=== PATIENT | female | born 1930 | race Caucasian/White ===

== ENCOUNTER 2016-08-07 17:06 | Emergency (ER) | payer OTHER ==
[~2016-08-07] VITALS: Ht 165.1 cm; Wt 62.6 kg
--- NOTE | ~2016-08-07 | EKG ---
[place] [address] [facility] [email or web address] [address] ELECTROCARDIOGRAM REPORT Name: ELMA ROSADO Room #: DEP [facility]#: [id number] Admission: 08/07/16 Attend Phys: Discharge: 08/07/16 Date of : 32 Report #: [id number] THIS REPORT FOR: //name// [facility] ED Test Date: 2016-08-07 Test Time: 17:22:03 Pat Name: ELMA ROSADO Department: Room: Gender: F President Celebrity Acquistion: warner : 1930 Requested By: Mariela Jones Order Number: [id number] MD: Alf Ellison Measurements Intervals [place] Rate: 71 P: 75 NE: 183 QRS: -22 QRSD: 100 T: 72 QT: 460 QTc: 500 Interpretive Statements Sinus rhythm Borderline left axis deviation Probable anteroseptal infarct, old Compared to ECG 10/27/2013 15:02:11 Premature ventricular complexes no longer present Electronically Signed On 08-08-2016 15:08:32 CDT by Alf Ellison [email or web address] <ELECTRONICALLY SIGNED> By: Alf Ellison MD, [facility] 08/08/16 1508 172 21 Alf Ellison MD, [facility] /EPI
[~2016-08-07 17:06] MED LIST: ACETAMINOPHEN325 M1 PO; ACID CONTROL20 MG PO; ACIDOPHILUS1 EAC3 PO; ADULT LOW DOSE81 MG PO; ASPIRIN EC81 M1 PO; ATIVAN0.5 MG PO; BAYER CHEWABLE81 MG PO; BISACODYL SUPP10 MG RE; CEFUROXIME500 MG PO; CELLCEPT500 MG PO; CEPACOL SORE T1 EAC7 PO; CHLORTHALIDONE25 MG PO; CLEOCIN HCL150 MG PO; CLEOCIN HCL300 MG PO; CLOPIDOGREL PO; CLOTRIMAZOLE10 MG PO; COLACE100 MG PO; COUMADIN 5 MG TA5 M1 PO; COZAAR 50 MG TA50 M1 PO; DESYREL100 MG PO; DIAZEPAM 5 MG5 M1 PO; ENOXAPARIN80 MG/0.1 SUBQ; HYDROCODON-ACE1 EAC7 PO; HYDROCODON-ACE1 EAC8 PO; HYDROCODON-ACE1 EACH PO; HYDROCODONE-APA1 TA1 PO; IMDUR 30 MG TAB30 M1 PO; IMDUR 60 MG TAB60 M1 PO; ISOSORBIDE DINI30 MG PO; LEVOTHROID25 MCG PO; LEVOTHYROXINE25 MCG PO; LEVOXYL PO; LEVOXYL25 MCG PO; LISINOPRIL20 MG PO; LOPERAMIDE 2 MG2 M1 PO; LOPRESSOR25 PO; MECLIZINE 25 MG25 M1 PO; MECLIZINE HCL12.5 MG PO; MILLIPRED DP5 M1 PO; MOM PO; MUCINEX TA600 MG/TA2 PO; NITROSTAT0.4 MG SL; NITROSTAT0.4 MG SUBLING; NORVASC5 MG PO; OCEAN45 ML NASAL; OPTIVE EYE DROP30 ML OPHTHALMIC; PERIDEX15 ML SWISH&SPIT; PLAVIX 75 MG TA75 MG PO; PREDNISONE 5 MG5 M1 PO; PREMARIN VAG; PROGRAF 1 MG1 MG PO; RANEXA 500 MG500 M1 PO; RANEXA1000 MG PO; RANEXA500 MG PO; REFRESH CELLUVI1 APP OPHTHALMIC; REFRESH CELLUVISC OPHTHALMIC; REMERON15 MG PO; REQUIP 0.25 M0.25 M1 PO; RESTASIS1 EACH OPHTHALMIC; SENNA LAXATIVE8.6 MG PO; SEROQUEL 50 MG50 MG PO; SERTRALINE HCL100 MG PO; STERAPRED5 MG PO; TACROLIMUS1 MG PO; TEARS NATURALE-15 ML OPHTHALMIC; TESSALON PERLE100 M1 PO; TOPROL XL25 MG PO; TUMS CHEWA500 MG/11 PO; ZANTAC 150MG T150 M1 PO; ZOCOR 20 MG TAB20 M1 PO; ZOLOFT 50 MG TA50 M1 PO; ZOLOFT100 MG PO
[2016-08-07 18:08] LABS: ABSOLUTE NEUTROPHILS 9.7 thou/uL (1.4-8.2); BASOPHILS 0.4 % (0.0-2.0); EOSINOPHILS 0.6 % (0.0-3.0); HEMATOCRIT 41.6 % (37.0-47.0); HEMOGLOBIN 14.1 gm/dL (12.0-15.0); LYMPHOCYTES 12.3 % (24.0-44.0); MCH 32.7 pg (26.0-34.0); MCHC 33.8 g/dL (28.0-37.0); MCV 96.8 fL (80.0-100.0); MONOCYTES 6.7 % (1.0-8.0); PLATELET COUNT 226 thou/uL (150-400); WBC 12.1 thou/uL (4.0-11.0)
[2016-08-07 18:10] LABS: MANUAL DIFF NO
[2016-08-07 18:22] LABS: ANION GAP 11 mmol/L (7-16); BUN 10 mg/dL (7-18); CALCIUM 8.4 mg/dL (8.5-10.1); CHLORIDE 108 mmol/L (98-107); CO2 24 mmol/L (21-32); CREATININE 0.8 mg/dL (0.6-1.0); GLUCOSE 114 mg/dL (74-106); POTASSIUM 3.5 mmol/L (3.5-5.1); SODIUM 143 mmol/L (136-145)
[2016-08-07 18:24] LABS: PROTIME 10.7 Seconds (9.3-11.4)
[2016-08-07 18:32] LABS: ALBUMIN 3.1 g/dL (3.4-5.0); ALKALINE PHOSPHATASE 124 U/L (46-116); SGOT 19 U/L (15-37); SGPT 18 U/L (30-65); TOTAL BILIRUBIN 0.5 mg/dL (<0.1-1.0); TOTAL PROTEIN 6.3 g/dL (6.4-8.2); TROPONIN-I < 0.04 ng/mL (<0.04-0.07)
[2016-08-07] MEDS ORDERED: PHENERGAN 25 MG25 M1 PO (21:18)
[2016-08-07] MEDS ORDERED: NORCO 5-325 TA1 EACH PO (21:32)
[2016-08-08] MEDS ORDERED: TACROLIMUS1 MG PO (14:33)
[2016-08-08] MEDS ORDERED: LISINOPRIL20 MG PO (14:36)
[2016-08-08] MEDS ORDERED: CLOPIDOGREL75 MG PO (14:37)
[2016-08-08] MEDS ORDERED: MECLIZINE HCL12.5 MG PO (14:40)
[2016-08-08] MEDS ORDERED: EYE DROPS15 M1 OPHTHALMIC (14:42)
== END 2016-08-07 21:50 | disposition home or self-care (01) ==
LOC: ER 17:06
PROVIDERS: Physician Assistant
DX: S16.1XXA Strain of muscle, fascia and tendon at neck level, initial encounter (principal); S20.211A Contusion of right front wall of thorax, initial encounter; S70.01XA Contusion of right hip, initial encounter; M25.461 Effusion, right knee; I10 Essential (primary) hypertension; E78.5 Hyperlipidemia, unspecified; I25.10 Atherosclerotic heart disease of native coronary artery without angina pectoris; Z86.73 Personal history of transient ischemic attack (TIA), and cerebral infarction without residual deficits; E03.9 Hypothyroidism, unspecified; Z85.828 Personal history of other malignant neoplasm of skin; G47.30 Sleep apnea, unspecified; H04.129 Dry eye syndrome of unspecified lacrimal gland; F32.9 Major depressive disorder, single episode, unspecified; Z90.710 Acquired absence of both cervix and uterus; Z91.041 Radiographic dye allergy status; Z91.013 Allergy to seafood; Z88.0 Allergy status to penicillin; Z88.1 Allergy status to other antibiotic agents; Z88.8 Allergy status to other drugs, medicaments and biological substances; W18.30XA Fall on same level, unspecified, initial encounter; Y93.89 Activity, other specified; Y92.89 Other specified places as the place of occurrence of the external cause; Y99.9 Unspecified external cause status

== ENCOUNTER 2016-08-08 11:18 | Inpatient (IN) | payer OTHER ==
[~2016-08-08] VITALS: Ht 165.1 cm; Wt 62.6 kg
--- NOTE | ~2016-08-08 | D ---
[facility] [place] [address] DISCHARGE SUMMARY Name: ELMA ROSADO Room #: 546-P [facility] IN M.R.#: [id number] Admission: 08/08/16 Attend Phys: Nnamdi Valentine MD Discharge: 08/11/16 Date of : 32 Report #: [id number] THIS REPORT FOR: //name// CC: Jose Enrique Valentine FINAL DIAGNOSES: 1. Right knee sprain. 2. Right knee osteoarthritis. 3. Left wrist fracture. 4. Personal history of kidney transplant. 5. Gait disturbance. HOSPITAL COURSE: The patient was admitted from home after a fall. She suffered a right knee strain. X-rays were negative. CT was negative. consultation and performed a steroid injection. Voltaren gel was added and this seemed to help her pain. Other home medications were continued. She was still basically nonweightbearing due to her previous left wrist fracture about 2 weeks ago. She could not function at home nor her family could care for her, so [place] [facility]. PHYSICAL EXAMINATION: GENERAL: On the day of discharge, she was awake and alert. VITAL SIGNS: Stable. LUNGS: Clear. HEART: Regular. ABDOMEN: Soft. EXTREMITIES: Showed no edema. DISPOSITION: She will to [place] [facility] [place] [facility] [place], I will follow her stay there. DIET: She will have a regular diet. ACTIVITY: As tolerated. PT and OT, nonweightbearing on the left wrist. MEDICATIONS: I have signed her medication list. <ELECTRONICALLY SIGNED> By: Nnamdi Valentine MD 08/12/16 1108 1350 1937 Nnamdi Valentine MD /nt
--- NOTE | ~2016-08-08 | H ---
[facility] [place] [address] HISTORY AND PHYSICAL Name: ELMA ROSADO Room #: 546-P ADM IN M.R.#: [id number] Admission: 08/08/16 Attend Phys: Nnamdi Valentine MD Discharge: Date of : 32 Report #: [id number] THIS REPORT FOR: //name// CC: Jose Enrique Valentine DATE OF SERVICE: 08/08/2016 CHIEF COMPLAINT: Weakness and falls. HISTORY OF PRESENT ILLNESS: The patient is an 85-year-old female who had 2 recent falls and ER admissions with injury. She fell a couple of weeks ago and suffered a left wrist fracture, for which she has a splint. She then had another fall a few days ago and went to the emergency room with right knee pain. There is no fracture identified on x-ray; however. Her daughter called me yesterday and the patient is unable to stand or walk due to pain and weakness. Her daughter is unable to care for her and she was admitted from the hospital. PAST MEDICAL HISTORY: Chronic kidney disease, she has had a kidney transplant; hypertension. She had coronary artery disease. PAST SURGICAL HISTORY: As above. FAMILY HISTORY: Noncontributory. SOCIAL HISTORY: No chronic alcohol or tobacco use. ALLERGIES: CODEINE, PENICILLIN, TRIMETHOPRIM, SULFA AND FOOD INTOLERANCE. MEDICATIONS: Meclizine, aspirin, Ativan, Lipitor, Plavix, Pepcid, hydrocodone, isosorbide, Synthroid, Prinivil, metoprolol, mirtazapine, mycophenolate, prednisone, Seroquel, Ranexa, Sertraline, tacrolimus. REVIEW OF SYSTEMS: She complains of right knee pain and weakness. She is unable to walk or stand, otherwise no headache, chest pain, shortness of breath, abdominal pain, nausea, vomiting, diarrhea, constipation, dysuria or syncope. OBJECTIVE: VITAL SIGNS: Temperature 37.1, pulse ____, respirations 16, blood pressure 140/62, O2 sat 95% on room air. GENERAL: She is awake and alert, in no distress. HEAD AND NECK: Unremarkable. LUNGS: Clear. HEART: Regular. ABDOMEN: Soft, normoactive bowel sounds. EXTREMITIES: There is no edema. She has a splint on the left forearm and [address] [address] HISTORY AND PHYSICAL Name: ELMA ROSADO Room #: [address] [place] [address] [place] [facility].#: [id number] Admission: 08/08/16 Attend Phys: Nnamdi Valentine MD Discharge: Date of : 32 Report #: [id number] wrist. There is some swelling of the left knee, there is no bruising. It is tender to range of motion. NEUROLOGIC: Global strength 3/5 throughout. Basic lab data is unremarkable. ASSESSMENT: 1. Right knee strain. 2. Left wrist fracture. 3. Falls. 4. Gait disturbance. 5. Senile debility. 6. Personal history of kidney transplant. 7. Hypertension. 8. Coronary artery disease. 9. Chronic kidney disease. PLAN: She is admitted for medical evaluation of her knee and therapies. She will need some level of rehabilitation once her knee has been investigated. Other home medications to continue. SCDs. <ELECTRONICALLY SIGNED> By: Nnamdi Valentine MD 08/10/16 0900 0751 0814 Nnamdi Valentine MD /nt
--- NOTE | ~2016-08-08 | HC ---
[facility] [place] [address] CONSULTATION Name: ELMA ROSADO Room #: 546-P ADM IN M.R.#: [id number] Admission: 08/08/16 Attend Phys: Nnamdi Valentine MD Discharge: Date of : 32 Report #: [id number] THIS REPORT FOR: //name// CC: Jose Enrique Valentine CHIEF COMPLAINT: Right knee pain. HISTORY OF PRESENT ILLNESS: This is an 85-year-old patient who came to the emergency room on the after falling, it was noted at that point to have significant right hip, knee and lower extremity pain. She was unable to ambulate without significant increased pain afterwards. Presently, she complains of right knee pain more than any of the other symptoms. She has a history of Meniere's disease with a history of a prior right hip hemiarthroplasty. PAST MEDICAL HISTORY: Significant for a renal transplant in 1999, hypertension, hyperlipidemia, cardiomegaly, coronary artery disease, CVA times 3, appendectomy, cholecystectomy, meningitis, depression, delusions, hypothyroidism, frequent headaches, right hip fracture in February of 2008, basal cell carcinoma removed from the nose, history of pneumonia, sleep apnea, hysterectomy in , dry eye syndrome, bilateral cataract surgery, surgery, irrigation and debridement of right neck abscess in 2013, dysphagia and a history of a prior DVT in the right upper extremity. MEDICATIONS: Noted on MR. ALLERGIES: To include CONTRAST MEDIA, SHELLFISH, CODEINE, PENICILLIN, TRIMETHOPRIM, and SULFA. SOCIAL HISTORY: Negative for tobacco or alcohol use. REVIEW OF SYSTEMS: As above. PHYSICAL EXAMINATION: VITAL SIGNS: Blood pressure of 136/63, temperature is 98.4, pulse is 69, respiratory rate is 16. EXTREMITIES: Examination of the patient's right lower extremity notes she is nontender over her ankle at this point, she has no effusion over her knee joint, tender to palpation along the proximal tibia as well as anteriorly. She has limited motion due to pain. She otherwise is neurovascularly intact distally. X-rays of the hip notes a intact hemiarthroplasty. X-rays of the knee notes some arthritic changes, question of a nondisplaced proximal tibia fracture. X-rays of the tib-fib are negative. IMPRESSION: Right knee pain with effusion, possible occult fracture. [address] [address] CONSULTATION Name: ELMA ROSADO Room #: 546-P [facility] IN M.R.#: [id number] Admission: 08/08/16 Attend Phys: Nnamdi Valentine MD Discharge: Date of : 32 Report #: [id number] PLAN: At this point, we proceed with a CT scan to evaluate the right knee. Once cleared, if it is negative, we will proceed with therapy and perhaps a steroid injection. We will manage accordingly if there is an occult fracture. Thank you for allowing me to participate in the care of this pleasant patient. <ELECTRONICALLY SIGNED> By: Elpidio Hubbard MD 08/10/16 1154 0914 1051 Elpidio Hubbard MD /nt
[~2016-08-08 11:18] MED LIST changes: +NORCO 5-325 TA1 EACH PO; +PHENERGAN 25 MG25 M1 PO
[2016-08-08 12:15] VITALS: BP 163/71
[2016-08-08] MEDS ORDERED: TACROLIMUS1 MG PO (14:33)
[2016-08-08] MEDS ORDERED: LISINOPRIL20 MG PO (14:36)
[2016-08-08] MEDS ORDERED: CLOPIDOGREL75 MG PO (14:37)
[2016-08-08] MEDS ORDERED: MECLIZINE HCL12.5 MG PO (14:40)
[2016-08-08] MEDS ORDERED: EYE DROPS15 M1 OPHTHALMIC (14:42)
[2016-08-08 15:41] VITALS: BP 176/78
[2016-08-08 16:08] LABS: HEMATOCRIT 42.9 % (37.0-47.0); HEMOGLOBIN 14.4 gm/dL (12.0-15.0); MCH 32.5 pg (26.0-34.0); MCHC 33.6 g/dL (28.0-37.0); MCV 96.5 fL (80.0-100.0); RBC 4.44 mil/uL (4.20-5.00); RDW 12.9 % (10.5-14.5); WBC 11.6 thou/uL (4.0-11.0)
[2016-08-08 16:21] LABS: CALCIUM 8.3 mg/dL (8.5-10.1); CREATININE 0.8 mg/dL (0.6-1.0); POTASSIUM 3.5 mmol/L (3.5-5.1)
[2016-08-08 20:00] VITALS: BP 125/54
[2016-08-09 04:00] VITALS: BP 140/62
[2016-08-09 08:10] VITALS: BP 136/63
[2016-08-09 18:00] VITALS: BP 124/75
[2016-08-09 21:25] VITALS: BP 139/60
[2016-08-10 04:10] VITALS: BP 149/63
[2016-08-10 08:00] VITALS: BP 133/60
[2016-08-10 11:20] VITALS: BP 111/59
[2016-08-10 15:35] VITALS: BP 111/47
[2016-08-10 20:00] VITALS: BP 155/83
[2016-08-11 04:30] VITALS: BP 188/104
[2016-08-11 07:13] VITALS: BP 177/88
[2016-08-11] MEDS ORDERED: VOLTAREN GEL 1100 G1 TOP (12:52)
[2016-08-11] MEDS ORDERED: HYDROCODONE-APA1 TA1 PO (12:52)
== END 2016-08-11 14:13 | DRG 554 ==
LOC: PRE 11:18 → 5S 12:12
PROVIDERS: Internal Medicine Geriatric Medicine
DX: M17.11 Unilateral primary osteoarthritis, right knee (principal); Z94.0 Kidney transplant status; S62.102A Fracture of unspecified carpal bone, left wrist, initial encounter for closed fracture; M25.561 Pain in right knee; E78.5 Hyperlipidemia, unspecified; I25.10 Atherosclerotic heart disease of native coronary artery without angina pectoris; F32.9 Major depressive disorder, single episode, unspecified; E03.9 Hypothyroidism, unspecified; I12.9 Hypertensive chronic kidney disease with stage 1 through stage 4 chronic kidney disease, or unspecified chronic kidney disease; N18.9 Chronic kidney disease, unspecified; R26.9 Unspecified abnormalities of gait and mobility; S80.01XA Contusion of right knee, initial encounter; Z88.0 Allergy status to penicillin; Z88.2 Allergy status to sulfonamides; Z91.041 Radiographic dye allergy status; Z86.718 Personal history of other venous thrombosis and embolism; Z86.73 Personal history of transient ischemic attack (TIA), and cerebral infarction without residual deficits; Z90.49 Acquired absence of other specified parts of digestive tract; Z91.013 Allergy to seafood; Z88.6 Allergy status to analgesic agent; Z79.82 Long term (current) use of aspirin; Z79.899 Other long term (current) drug therapy; W18.39XA Other fall on same level, initial encounter; Y93.89 Activity, other specified; Y92.89 Other specified places as the place of occurrence of the external cause; Y99.8 Other external cause status
CPT/HCPCS: 10785

== ENCOUNTER 2016-12-30 18:35 | Inpatient (IN) | payer OTHER ==
[~2016-12-30] VITALS: Ht 165.1 cm; Wt 68.0 kg
--- NOTE | ~2016-12-30 | H ---
[facility] [place] [address] HISTORY AND PHYSICAL Name: ELMA ROSADO Room #: 420-P [facility] IN M.R.#: [id number] Admission: 12/31/16 Attend Phys: Winston Arriola MD Discharge: Date of : 32 Report #: [id number] THIS REPORT FOR: //name// CC: Jose Enrique Arriola DATE OF SERVICE: 12/31/2016 CHIEF COMPLAINT: Dizziness, nausea and vomiting. HISTORY OF PRESENT ILLNESS: The patient is an 86-year-old female with multiple medical problems, who came to the Emergency Room with a 1- to 2-day history of dizziness with nausea and vomiting. She does have a history of Meniere's disease and says in the past she has had symptoms that seemed limited to just 24 hours. Mainly, she notices a sense of dizziness whenever she opened her eyes or turned her head from side to side or sitting up from a lying position in bed. This was accompanied by nausea and vomiting. She also experienced symptoms of a headache and she complained of a stiff neck. As her symptoms persisted more than a day, she presented to the Emergency Room last night. Overnight, she continues to have symptoms when moving around, but says she feels a little better this morning after receiving some Zofran. She has had a CT and MRI of the brain that are negative for acute stroke or bleed. Carotid Dopplers and echocardiogram are unremarkable as well. PAST MEDICAL HISTORY: Chronic kidney disease, she had a kidney transplant about 10 years ago; hypertension; coronary artery disease and Meniere's disease. She reports a history of meningitis about 8 years ago which occurred after her transplant. PAST SURGICAL HISTORY: As above. FAMILY HISTORY: Noncontributory. SOCIAL HISTORY: No chronic alcohol or tobacco use. ALLERGIES: CODEINE, PENICILLIN, SULFA AND SOME FOOD INTOLERANCES. MEDICATIONS: Plavix, Ranexa, Zocor, isosorbide, metoprolol, lisinopril, aspirin, hydrocodone, Remeron, Zoloft, Seroquel, Ativan, eyedrops, meclizine, prednisone, Levoxyl, mycophenolate, tacrolimus and Pepcid. REVIEW OF SYSTEMS: She complains of dizziness. Otherwise, no night sweats, chest pain, fever, chills, shortness of breath, abdominal pain, diarrhea, constipation, syncope or fall. [address] [address] HISTORY AND PHYSICAL Name: ELMA ROSADO Room #: 420-P [facility] IN ..#: [id number] Admission: 12/31/16 Attend Phys: Winston Arriola MD Discharge: Date of : 32 Report #: [id number] PHYSICAL EXAMINATION: VITAL SIGNS: Temperature 36.7, pulse 72, respirations 16 and blood pressure 183/70. GENERAL: She was awake and alert, lying in bed, in no distress. HEAD AND NECK: Unremarkable. She had no real neck rigidity. LUNGS: Clear. HEART: Regular. ABDOMEN: Soft. Normoactive bowel sounds. EXTREMITIES: No edema. NEUROLOGIC: She moves all extremities. She is alert and oriented, recognizes me and knows her surroundings. LABORATORY DATA: Lab and radiology data reviewed. ASSESSMENT: 1. Vertigo with nausea and vomiting. 2. Hypertension. 3. Coronary artery disease. 4. Personal history of renal transplant. 5. Meniere's disease by history. 6. History of meningitis. PLAN: She has had most of her radiology studies unremarkable for acute vascular event. Neurology has been consulted. Given her immunosuppression and remote history, we should rule out recurrent meningitis, although without significant headache, this seems perhaps less likely. This may all just be related to her underlying Meniere's disease. <ELECTRONICALLY SIGNED> By: Nnamdi Valentine MD 01/01/17 0804 1201 1232 Nnamdi Valentine MD /nt
--- NOTE | ~2016-12-30 | HC ---
[facility] [address] CONSULTATION Name: ELMA ROSADO Room #: 418-P ADM IN M.R.#: [id number] Admission: 12/31/16 Attend Phys: Winston Arriola MD Discharge: Date of : 32 Report #: [id number] THIS REPORT FOR: //name// CC: Jose Enrique Arriola DATE OF SERVICE: 01/04/2017 HISTORY OF PRESENT ILLNESS: The patient is an 86-year-old white female with a 1-2 day history of dizziness, nausea and vomiting. She has a prior history of Meniere's disease and also has had prior CVAs. She was seen by Neurology. MRI showed old right cerebellar and left occipital CVAs with nothing acute. This was noted to be her most severe episode and it was thought to be due to her Meniere's disease. She is overall doing better with improved nausea, but still has significant balance issues. We are seeing her in rehabilitation medicine consultation. PAST MEDICAL HISTORY: Includes chronic kidney disease with the kidney transplant about 10 years ago; hypertension; coronary artery disease; Meniere's disease; history of meningitis about 4 years ago; she has had strokes, the last one 4 years ago and has had a right homonymous hemianopsia from this. MEDICATIONS: Please see the full medication listing. ALLERGIES: CODEINE, PENICILLIN, SULFA, AND SOME FOOD INTOLERANCES. FAMILY HISTORY: Noncontributory. SOCIAL HISTORY: She lives with her daughter, split-level house, 4 steps in, 8 inside. Premorbidly walked with a walker. Daughter is recently retired and the daughter herself has leukemia. REVIEW OF SYSTEMS: The patient notes a prior history of right knee degenerative arthritis. Apparently was recommended for a total knee replacement at one point, but now she has indicated that she is too old to be a surgical candidate. Denies any chest pain, shortness of breath or abdominal discomfort. Did not offer any complaints of nausea. She has concerned regarding her dizziness and balance when attempting to get up. PHYSICAL EXAMINATION: GENERAL: She is a pleasant 86-year-old white female in no obvious distress. VITAL SIGNS: Last recorded temperature is 98.1, pulse 82, respirations 18, blood pressure 152/85. NEUROLOGIC: The patient is alert. She is pleasant. She follows basic [address] [address] CONSULTATION Name: ELMA ROSADO Room #: 418-P [facility] IN .R.#: [id number] Admission: 12/31/16 Attend Phys: Winston Arriola MD Discharge: Date of : 32 Report #: [id number] commands. There is some latency to her responses. Cranial nerves reveal a right homonymous hemianopsia. HEENT: Facies otherwise appeared symmetric. EXTREMITIES: She has functional range of motion of both upper extremities. Strength appears to be at 4+/5. DTRs are trace to 1. In her lower extremities, she has functional range of motion with strength grade 4+/5. DTRs are trace to 1. Functionally, she has sat approximately 5 minutes, standby assistance with some mild trunk instability and was unable to ambulate. ASSESSMENT: An 86-year-old white female with the following problem list: 1. Meniere's disease. 2. Gait instability with recent falls. 3. 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 4. 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 5. Hypertension. 6. History of renal transplant. PLAN: Therapies are working with her regarding her functional mobility and ADLs. Insurance will need to be checked regarding rehab options. The patient is clearly unable to return home at this time and will need further therapy to improve her functional mobility and ADL independence. We will be glad to follow along with you regarding rehab therapy issues. <ELECTRONICALLY SIGNED> By: Nnamdi Coleman MD 01/05/17 1232 0935 0136 Nnamdi Coleman MD /[facility]
--- NOTE | ~2016-12-30 | EKG ---
[address] [place] [address] ELECTROCARDIOGRAM REPORT Name: ELMA ROSADO Room #: 420-P ADM IN M.R.#: [id number] Admission: 12/31/16 Attend Phys: Winston Arriola MD Discharge: Date of : 32 Report #: [id number] THIS REPORT FOR: //name// [facility] ED Test Date: 2016-12-30 Test Time: 19:19:34 Pat Name: ELMA ROSADO Department: Room: [facility] Gender: F Javascript Engineer: [id number] : 1930 Requested By: Lance Potter Order Number: [id number] MD: Alf Ellison Measurements Intervals [place] Rate: 59 P: 79 [place]: 181 QRS: -16 QRSD: 92 T: 64 QT: 501 QTc: 497 Interpretive Statements Sinus rhythm Borderline left axis deviation Probable anteroseptal infarct, old Baseline wander in lead(s) II,III,aVF Compared to ECG 08/07/2016 17:22:03 No significant change was found Electronically Signed On 12-31-2016 8:18:07 CDT by Alf Ellison [email or web address] <ELECTRONICALLY SIGNED> By: Alf Ellison MD, [facility] 12/31/16 0818 18 18 Alf Ellison MD, [facility] /EPI
--- NOTE | ~2016-12-30 | D ---
[facility] [place] [address] DISCHARGE SUMMARY Name: ELMA ROSADO Room #: 418-P [facility] IN M.R.#: [id number] Admission: 12/31/16 Attend Phys: Winston Arriola MD Discharge: 01/05/17 Date of : 32 Report #: [id number] THIS REPORT FOR: //name// CC: Jose Enrique Arriola FINAL DIAGNOSES: 1. Meniere's disease. 2. Hypertension. 3. History of kidney transplant. HOSPITAL COURSE: The patient was admitted with dizziness, intractable nausea and vomiting. Initial workup was to exclude acute vascular event and MRI studies were unremarkable. Neurology service followed her. Also with consideration of meningitis, which she suffered previously and this was ruled out after tap, ID service followed her. Essentially diagnosis was exacerbation of her underlying Meniere's disease. She was treated symptomatically with increased doses of meclizine and her home medications. Physical therapy was added as well. She was still imbalanced when walking. Recommended inpatient rehabilitation, but her insurance company would not cover this, therefore she will transfer to a skilled facility. PHYSICAL EXAMINATION: GENERAL: On the day of discharge, she was up in the chair, in no distress. VITAL SIGNS: Stable vital signs. LUNGS: Clear. HEART: Regular. ABDOMEN: Soft. Normoactive bowel sounds. EXTREMITIES: No edema. DISPOSITION: She is being transferred to [facility], I follow her stay there, physical and occupational, I signed her transfer medication orders. <ELECTRONICALLY SIGNED> By: Nnamdi Valentine MD 01/07/17 1018 1233 1500 Nnamdi Valentine MD /nt
--- NOTE | ~2016-12-30 | HC ---
[facility] [address] CONSULTATION Name: ELMA ROSADO Room #: 420-P ADM IN M.R.#: [id number] Admission: 12/31/16 Attend Phys: Winston Arriola MD Discharge: Date of : 32 Report #: [id number] THIS REPORT FOR: //name// CC: Jose Enrique Arriola REASON FOR CONSULTATION: I was asked to evaluate the patient concerning headache and possible meningitis. HISTORY OF PRESENT ILLNESS: The patient is an 86-year-old, immunosuppressed on 3-drug program for renal transplant. She has had no recent rejection episodes. She is on tacrolimus, CellCept and prednisone. In the past 3 days, she has had headache, dizziness, nausea, vomiting, sore throat. No definite fever or chills. She has been unsteady on her gait. Intermittent nonproductive cough. She has had no travel. She has been around no other ill persons. She does have some stiff neck associated with her headache. PAST MEDICAL HISTORY: Significant for end-stage renal disease status post renal transplant approximately 10 years ago, hypertension, Meniere disease. She has had a case of meningitis in the remote past. Coronary artery disease, stents, previous stroke, appendectomy, cholecystectomy, depression, hypothyroidism, right hip fracture with hemiarthroplasty, right knee surgery, basal cell carcinoma of the face, pneumonia, obstructive sleep apnea, partial hysterectomy, bilateral cataracts, sialadenitis and stone with abscess, DVT, left arm fracture. ALLERGIES: IODINE, CODEINE, PENICILLIN, BACTRIM. MEDICATIONS: As noted on her MAR, having completed ciprofloxacin about a week ago for documented urinary tract infection. FAMILY HISTORY: Noncontributory. SOCIAL HISTORY: Nonsmoker, no significant alcohol intake, no HIV risk factors. REVIEW OF SYSTEMS: In addition to the above, she has had no rash. No abdominal pain. Has had nausea. She does have loose stools, which is chronic for her. No dysuria or frequency. PHYSICAL EXAMINATION: VITAL SIGNS: Afebrile, hemodynamically stable. GENERAL: She was alert and cooperative. She was thin. HEENT: Remarkable for decreased hearing on the right. She did report vertigo to the right when she sat up in bed. Decreased hearing on the right. Mouth unremarkable. Extraocular movements intact. Strength in her face was normal. [address] [address] CONSULTATION Name: ELMA ROSADO Room #: 420-P [facility] IN M.R.#: [id number] Admission: 12/31/16 Attend Phys: Winston Arriola MD Discharge: Date of : 32 Report #: [id number] NECK: 1+ stiff. LUNGS: Few crackles in the bases bilaterally. HEART: Regular without murmur. ABDOMEN: Soft, nontender, no hepatosplenomegaly or mass. EXTREMITIES: Unremarkable. NEUROLOGIC: Otherwise normal. LABORATORY STUDIES: MRI scan of the brain showed old infarct, right cerebellum and left occipital region. Chest x-ray: Clear. UA: Unremarkable. CRP 16. Hemoglobin 16, WBC 9.4, normal diff, platelet count 186,000. Sodium 141, potassium 3.6, bicarbonate 21, creatinine 0.7, alkaline phosphatase 143, ALT 19. IMPRESSION: An 86-year-old with persisting headache with decreased hearing on the right and vomiting. Although she does not look toxic, I am concerned about inflammatory process in the central nervous system considering no evidence of new stroke. She is immunosuppressed on 3 drugs. She does have a history of Meniere's, but this seems out of proportion to her previous episodes. The patient is on anticoagulation, noting aspirin and clopidogrel. I would recommend a lumbar puncture when Radiology feels it is safe to perform. We will evaluate for viral, bacterial, fungal disease. Continue current support. I would like to lower her immunosuppression if there is evidence of inflammation in the cerebrospinal fluid examination. We will need to see how she does after this tap. Will empirically place on antibiotic therapy following cerebrospinal fluid examination. By: 1327 1647 Mike Quigley MD /nt
--- NOTE | ~2016-12-30 | 2DMMODE ---
[facility] [place] [address] 2 D/M-MODE ECHOCARDIOGRAM Name: ELMA ROSADO Room #: 420-P ADM IN M.R.#: [id number] Admission: 12/31/16 Attend Phys: Mai Suresh Discharge: Date of : 34 Date of Service: 12/31/16 1123 Report #: [id number] THIS REPORT FOR: //name// APPROVED REPORT Study performed: 12/31/2016 10:30:18 EXAM: Comprehensive 2D, Doppler, and color-flow Echocardiogram Patient Location: Bedside Room #: 420 Status: routine BSA: 1.75 HR: 80 bpm BP: 183/70 mmHg Rhythm: NSR Other Information Study Quality: Adequate Indications CVA/TIA Hx: CAD, stent, CVA's Echo Enhancing Agent Indication: Rule out Shunt Agent(s) / Amount(s) Used: Agitated Saline 6 cc 2D Dimensions RVDd: 30.21 mm LVEF(%): 55.38 (>50%) IVSd: 13.20 (7-11mm) LVOT Diam: 20.61 (18-24mm) LVDd: 34.60 mm PWd: 10.12 (7-11mm) Ascending Ao: 38.55 (22-36mm) LVDs: 24.89 (25-40mm) Aortic Root: 36.54 mm Rodas's LVEF: 55.38 % Volumes Left Atrial Volume (Systole) Single Plane 4CH: 27.55 mL Single Plane 2CH: 34.12 mL LA ESV Index: 20.00 mL/m2 Aortic Valve AoV Peak Ananda.: 2.03 m/s AO Peak Gr.: 14.78 mmHg LVOT Max P.37 mmHg AO Mean Gr.: 8.23 mmHg [facility] [place] [address] 2 D/M-MODE ECHOCARDIOGRAM Name: ASHLEEELMA RAJI Room #: 420-P [facility] IN M.R.#: [id number] Admission: 12/31/16 Attend Phys: Mai Suresh Discharge: Date of : 32 Date of Service: 12/31/16 1123 Report #: [id number] AO V2 Mean: 1.38 m/s LVOT Max V: 1.05 m/s AO V2 VTI: 43.30 cm SAVANNAH Vmax: 1.72 cm2 Mitral Valve E/A Ratio: 0.5 MV Decel. Time: 241.56 ms MV E Max Ananda.: 0.72 m/s MV A Ananda.: 1.35 m/s MV PHT: 70.05 ms IVRT: 101.50 ms Pulmonary Valve PV Peak Ananda.: 1.01 m/s PV Peak Gr.: 4.06 mmHg Pulmonary Vein P Vein S: 0.60 m/s P Vein A: 0.33 m/s P Vein D: 0.28 m/s P Vein A Dur.: 115.3 msec P Vein S/D Ratio: 2.14 Tricuspid Valve RAP Estimate: 5.00 mmHg Left Ventricle The left ventricle is normal size. There is normal LV segmental wall motion. Mild concentric left ventricular hypertrophy. Left ventricular systolic function is normal. LVEF is 60-65%. Mild diastolic dysfunction is present (impaired relaxation pattern). Right Ventricle The right ventricle is normal size. The right ventricular systolic function is normal. Atria The left atrium size is normal. Injection of bubbles documented no interatrial shunt. The right atrium size is normal. Aortic Valve Aortic valve is mildly calcified, trileaflet. Mild aortic regurgitation. There is no aortic valvular stenosis. Mitral Valve The mitral valve is normal in structure. No mitral regurgitation. No evidence of mitral valve stenosis. [facility] [address] [place] [address] 2 D/M-MODE ECHOCARDIOGRAM Name: ELMA ROSADO Room #: 420-P [facility] IN [facility].#: [id number] Admission: 12/31/16 Attend Phys: Mai Suresh Discharge: Date of : 32 Date of Service: 12/31/16 1123 Report #: [id number] Tricuspid Valve The tricuspid valve is normal in structure. There is no tricuspid valve regurgitation noted. Pulmonic Valve The pulmonary valve is normal in structure. Trace pulmonic regurgitation. Great Vessels Aortic root is at the upper limits of normal. The ascending aorta is mildly dilated at 3.9cm. IVC is normal in size and collapses >50% with inspiration. Pericardium There is no pericardial effusion. <Conclusion> Left ventricular systolic function is normal. There is normal LV segmental wall motion. Mild LVH LVEF is 60-65%. Mild diastolic dysfunction (impaired relaxation pattern). No shunting by contrast bubble injection Aortic valve is mildly calcified, trileaflet. No aortic valvular stenosis, mild insufficiency. The mitral valve is normal in structure. No mitral regurgitation. Pulmonary artery pressure could not be reliably ascertained There is no pericardial effusion. <ELECTRONICALLY SIGNED> By: Alf Ellison MD, FACC 12/31/16 1123 112 112 Alf Ellison MD, FACC /INF
[2016-12-30 18:35] VITALS: BP 186/89
[~2016-12-30 18:35] MED LIST changes: +CLOPIDOGREL75 MG PO; +EYE DROPS15 M1 OPHTHALMIC; +KEFLEX500 MG PO; +VOLTAREN GEL 1100 G1 TOP
[2016-12-30 19:15] LABS: ANION GAP 12 mmol/L (7-16); BUN 9 mg/dL (7-18); CALCIUM 8.9 mg/dL (8.5-10.1); CHLORIDE 108 mmol/L (98-107); CO2 21 mmol/L (21-32); CREATININE 0.7 mg/dL (0.6-1.0); GLUCOSE 138 mg/dL (74-106); POTASSIUM 3.6 mmol/L (3.5-5.1); SODIUM 141 mmol/L (136-145)
[2016-12-30 19:23] LABS: ABSOLUTE NEUTROPHILS 5.3 thou/uL (1.4-8.2); BASOPHILS 0.7 % (0.0-2.0); EOSINOPHILS 2.9 % (0.0-3.0); HEMATOCRIT 48.3 % (37.0-47.0); HEMOGLOBIN 16.2 gm/dL (12.0-15.0); LYMPHOCYTES 28.1 % (24.0-44.0); MCH 32.6 pg (26.0-34.0); MCHC 33.5 g/dL (28.0-37.0); MCV 97.5 fL (80.0-100.0); MONOCYTES 7.6 % (1.0-8.0); POLYS 60.7 % (36.0-66.0); RBC 4.95 mil/uL (4.20-5.00); RDW 13.4 % (10.5-14.5); WBC 9.4 thou/uL (4.0-11.0)
[2016-12-30 19:24] LABS: ALBUMIN 3.5 g/dL (3.4-5.0); ALKALINE PHOSPHATASE 143 U/L (46-116); MANUAL DIFF NO; SGOT 25 U/L (15-37); SGPT 19 U/L (30-65); TOTAL BILIRUBIN 0.7 mg/dL (<0.1-1.0); TOTAL PROTEIN 6.9 g/dL (6.4-8.2); TROPONIN-I < 0.04 ng/mL (<0.04-0.07)
[2016-12-30 19:42] LABS: PLATELET COUNT 186 thou/uL (150-400)
[2016-12-30 20:30] LABS: URINE BILIRUBIN NEGATIVE (Negative); URINE BLOOD NEGATIVE (Negative); URINE COLOR YELLOW; URINE GLUCOSE-RANDOM* NEGATIVE (Negative); URINE KETONES NEGATIVE (Negative); URINE LEUKOCYTES-REFLEX NEGATIVE (Negative); URINE PROTEIN (DIPSTICK) TRACE (Negative); URINE UROBILINOGEN 0.2 E.U./dl (0.2-1.0)
[2016-12-31] VITALS (9 sets, daily range): BP systolic 115–183; BP diastolic 61–84
[2016-12-31 14:01] LABS: APTT 24.8 Seconds (24.5-32.8); PROTIME 10.4 Seconds (9.3-11.4)
[2016-12-31 14:23] LABS: FOLIC ACID 18.1 ng/mL (8.6-58.9)
[2016-12-31 15:40] LABS: CSF GLUCOSE 75 mg/dL (40-70); CSF PROTEIN 63 mg/dL (15-45)
[2016-12-31 15:51] LABS: MANUAL DIFF NO; NUMBER OF TUBES 3
[2016-12-31 15:52] LABS: CSF CLARITY CLEAR; CSF COLOR COLORLESS; CSF WBC 2 /mm3 (0-10); VOLUME 4 ml
[2017-01-01 02:06] LABS: GLYCOHEMOGLOBIN (HGB A1C) 5.8 % (4.8-5.6)
[2017-01-01 02:56] VITALS: BP 110/65
[2017-01-01 08:39] VITALS: BP 174/74
[2017-01-01 16:57] VITALS: BP 121/69
[2017-01-01 20:00] VITALS: BP 139/82
[2017-01-02 05:30] VITALS: BP 131/73
[2017-01-02 08:43] VITALS: BP 172/99
[2017-01-02 17:15] VITALS: BP 159/82
[2017-01-02 19:32] VITALS: BP 134/76
[2017-01-03 04:11] VITALS: BP 132/74
[2017-01-03 08:28] VITALS: BP 222/103
[2017-01-03 10:46] VITALS: BP 150/87
[2017-01-03] MEDS ORDERED: MECLIZINE HCL12.5 MG PO (12:41)
[2017-01-03 13:10] LABS: ALPHA TOCOPHEROL 9.4 mg/L (6.5-21.5)
[2017-01-03 20:00] VITALS: BP 191/84
[2017-01-03 23:08] LABS: INFLUENZA B Negative (Negative); METAPNEUMOVIRUS Negative (Negative)
[2017-01-04 04:00] VITALS: BP 204/94
[2017-01-04 06:06] VITALS: BP 198/91
[2017-01-04 07:55] VITALS: BP 152/85
[2017-01-04 14:41] LABS: HSV PCR SOURCE CSF
[2017-01-04 17:10] VITALS: BP 156/84
[2017-01-04 20:00] VITALS: BP 180/90
[2017-01-05 05:00] VITALS: BP 191/92
[2017-01-05 08:00] VITALS: BP 155/81
== END 2017-01-05 16:18 | DRG 149 ==
LOC: ER 18:35 → 4E 12-31 00:02 → EROBS 12-31 00:02 → 4E 12-31 00:51
PROVIDERS: Physician Assistant; Psychiatry & Neurology Neurology; Specialist
PROC: 009U3ZX Drainage of Spinal Canal, Percutaneous Approach, Diagnostic (ICD-10-PCS; principal; 2016-12-31)
PROC: B01B1ZZ Fluoroscopy of Spinal Cord using Low Osmolar Contrast (ICD-10-PCS; 2016-12-31)
DX: H81.09 Meniere's disease, unspecified ear (principal); Z94.0 Kidney transplant status; E78.5 Hyperlipidemia, unspecified; I25.10 Atherosclerotic heart disease of native coronary artery without angina pectoris; H54.11 Blindness, right eye, low vision left eye; F32.9 Major depressive disorder, single episode, unspecified; E03.9 Hypothyroidism, unspecified; I13.10 Hypertensive heart and chronic kidney disease without heart failure, with stage 1 through stage 4 chronic kidney disease, or unspecified chronic kidney disease; N18.9 Chronic kidney disease, unspecified; G47.33 Obstructive sleep apnea (adult) (pediatric); R26.9 Unspecified abnormalities of gait and mobility; H53.461 Homonymous bilateral field defects, right side; Z95.5 Presence of coronary angioplasty implant and graft; I25.2 Old myocardial infarction; Z86.73 Personal history of transient ischemic attack (TIA), and cerebral infarction without residual deficits; Z90.89 Acquired absence of other organs; Z90.49 Acquired absence of other specified parts of digestive tract; Z87.01 Personal history of pneumonia (recurrent); Z87.898 Personal history of other specified conditions; Z88.0 Allergy status to penicillin; Z88.2 Allergy status to sulfonamides; Z88.8 Allergy status to other drugs, medicaments and biological substances; Z91.041 Radiographic dye allergy status; Z90.710 Acquired absence of both cervix and uterus; Z98.42 Cataract extraction status, left eye; Z98.41 Cataract extraction status, right eye; Z86.718 Personal history of other venous thrombosis and embolism
CPT/HCPCS: 10183

== ENCOUNTER → 2018-11-13 | Outpatient (CLI) | payer OTHER ==
[~2018-11-13] VITALS: Ht 160 cm; Wt 53.1 kg
[~2018-11-13] MED LIST changes: +ACID CONTROLLER20 MG PO; +LISINOPRIL40 MG PO; +MECLIZINE HCL25 M1 PO; +NORCO 10-325 T1 EACH PO; +SEROQUEL 25 MG25 M1 PO
--- NOTE | 2018-11-14 14:56 | P ---
[facility] [place] [address] [place] [place] [address] PROCEDURE REPORT Name: ASHLEEELMA ALEGRIA Room #: REG [facility] Talia#: [id number] Admission: 11/13/18 ������������������ Attend Phys: Nicholas Harmon Discharge: ������������������ Date of : 32 Report #: [id number] THIS REPORT FOR: //name// CC: SAMY Ellison DATE OF SERVICE: 11/13/2018 PROCEDURE PERFORMED: Upper endoscopy with biopsies and esophageal dilation. HISTORY OF PRESENT ILLNESS: The patient is an 88-year-old female with a long history of dysphagia. No previous history of upper endoscopy. She reports dysphagia to both liquids and solids. She currently takes Pepcid b.i.d. for heartburn symptoms, which are fairly mild. She denies any odynophagia. She has had approximately 8 pounds of weight loss in the last 6 months. She has a poor appetite in general. She is on aspirin and Plavix for history of coronary artery disease with stent placement. She has been holding this for the last 5 days. She has previous history of renal transplant approximately 20 years ago. No previous history of upper endoscopy. She does report at times having to cough or choke up liquid or food approximately 2 times per week in general. DESCRIPTION OF PROCEDURE: The risks and benefits of the procedure were explained to the patient and her family those risks including, but not limited to, bleeding, perforation and the risk of sedation. They understood these risks and gave informed consent. Sedation was given using propofol per anesthesia. Next, using a standard Olympus upper endoscope, the scope was placed in the patient's mouth and advanced under direct vision through the esophagus, stomach and into the second portion of the duodenum. The larynx was normal in appearance. The esophagus was mildly tortuous in the upper and mid portion, however, otherwise normal. In the distal portion, there was a mild narrowing. No evidence of esophagitis at the GE junction. Upon entering the stomach, a small hiatal hernia was noted. There was a mild diffuse gastritis throughout the stomach. Biopsies were obtained to rule out H. pylori. No evidence of ulcerations or erosions. The pylorus was normal and patent. The duodenal bulb, first and second portion were all normal. The scope was then brought back up into the patient's stomach and a Savary guidewire was inserted through the scope leaving the guidewire in place as the scope was then withdrawn. I then started performing serial dilations initially with a 42-[place] Islander Savary eventually working up to a 51 Savary each time passing the scope after each dilation and there was no evidence of mucosal tear after any dilation today. No further dilations were performed after 51-[place] Islander. Biopsies were also obtained of the esophagus to rule out the possibility of eosinophilic esophagitis. The scope was then withdrawn and the procedure terminated. The patient tolerated the procedure well. [address] [address] PROCEDURE REPORT Name: ASHLEEELMAMARITZA ALEGRIA Room #: REG [facility] Melgar#: [id number] Admission: 11/13/18 ������������������ Attend Phys: Nicholas Harmon Discharge: ������������������ Date of : 32 Report #: [id number] IMPRESSION: 1. Mildly tortuous esophagus. Mild narrowing in the distal esophagus. No evidence of esophagitis, status post dilation as described above. 2. Small hiatal hernia. 3. Mild gastritis. RECOMMENDATIONS: 1. Await biopsy results. 2. Continue Pepcid b.i.d. 3. Observe the patient post dilation. If the patient reports no improvement in her dysphagia, could consider further workup such as esophageal manometry or video swallow. Thank you for allowing me to participate in her care. ��������������������������������������������� <ELECTRONICALLY SIGNED> ���������������������������������������� By: Nicholas Alejandra MD ��������������������������������������������� 11/14/18 1456 [id number] [id number] Nicholas Alejandra MD /nt
--- NOTE | 2018-11-14 15:07 | PATH ---
[facility] [place] [address] PATHOLOGY RPT PROCEDURE Name: VALE FERRARO Room #: REG [facility] Yvonne.#: [id number] ������������������ Admission: 11/13/18 ������������������ Date of : 32 Discharge: Report #: [id number] Path Case #: [id number] [facility] Accession Number: [id number] . 01 Material submitted: . PART A: stomach - GASTRIC BIOPSY GASTRITIS R/O H PYLORI PART B: esophagus - ESOPHAGUS BIOPSY R/O EOE . 01 Clinical history: . Pre-OP DX: Dysphasia, GERD Post-OP DX: Gastritis Rule out H. pylori, rule out EOE . 02 Diagnosis: A. Gastric mucosa, gastritis, rule out H. pylori, endoscopic biopsy: - Mild reactive gastropathy. - Negative for intestinal metaplasia or atrophy. - Negative for Helicobacter pylori (properly-controlled immunohistochemical stain performed). . B. Squamous mucosa, esophagus, rule out EOE, endoscopic biopsy: - Mild esophagitis with rare eosinophils (1-2/HPF). - Negative for intestinal metaplasia or dysplasia. . (IUV:mml; 11/14/2018) QLM/11/14/2018 . 02 Electronically signed: . Skye Villatoro MD, Pathologist NPI- [id number] . 01 Gross description: . A. Received in formalin labeled "Vale Ferraro, gastric BX," are 2 segments of santiago soft tissue measuring 1.3 x 0.8 x 0.3 cm in aggregate dimensions and ranging from 0.5 to 0.8 cm in maximum dimension. The specimen is submitted entirely in cassette A1. . B. Received in formalin labeled "Vale Ferraro, esophagus BX," are 3 segments of santiago soft tissue measuring 1.0 x 0.8 x 0.1 cm in aggregate dimensions and ranging from 0.3 to 0.4 cm in maximum dimension. The specimen is submitted entirely in cassette B1. (TSD; 11/13/2018) TOB/TOB . 02 Pathologist provided ICD-10: K31.9, K20.9 . [address] [place] [address] PATHOLOGY RPT PROCEDURE Name: VALE FERRARO Room #: REG [facility] Melgar#: [id number] ������������������ Admission: 11/13/18 ������������������ Date of : 32 Discharge: Report #: [id number] Path Case #: [id number] [facility] . [id number], [id number], [id number] Specimen Comment: A courtesy copy of this report has been sent to Specimen Comment: [phone], , . Specimen Comment: Report sent to ,DR DOSHI / DR ACOSTA Performed at: [address], [place], [place] [id number] MD Nelson Lyons MD Phone: [phone] Performed at: [address] [id number] MD Skye Villatoro MD Phone: [phone]
== END | disposition home or self-care (01) ==
LOC: GI 07:17
DX: K31.9 Disease of stomach and duodenum, unspecified (principal); K22.2 Esophageal obstruction; K44.9 Diaphragmatic hernia without obstruction or gangrene; I10 Essential (primary) hypertension; I25.10 Atherosclerotic heart disease of native coronary artery without angina pectoris; I25.2 Old myocardial infarction; E03.9 Hypothyroidism, unspecified; F32.9 Major depressive disorder, single episode, unspecified; K20.9 Esophagitis, unspecified; K21.9 Gastro-esophageal reflux disease without esophagitis; Z98.41 Cataract extraction status, right eye; Z79.82 Long term (current) use of aspirin; Z94.0 Kidney transplant status; Z86.73 Personal history of transient ischemic attack (TIA), and cerebral infarction without residual deficits; Z85.828 Personal history of other malignant neoplasm of skin; Z98.42 Cataract extraction status, left eye; Z90.711 Acquired absence of uterus with remaining cervical stump; Z87.01 Personal history of pneumonia (recurrent); Z90.49 Acquired absence of other specified parts of digestive tract; Z98.890 Other specified postprocedural states; Z79.899 Other long term (current) drug therapy
CPT/HCPCS: 62110; 62900

== ENCOUNTER → 2019-04-23 | Outpatient (CLI) | payer OTHER ==
[~2019-04-23] MED LIST changes: +LORAZEPAM 0.50.5 MG PO
== END ==
LOC: SJCVC 13:18
DX: I25.119 Atherosclerotic heart disease of native coronary artery with unspecified angina pectoris (principal); I10 Essential (primary) hypertension; E78.5 Hyperlipidemia, unspecified; E03.9 Hypothyroidism, unspecified; R94.31 Abnormal electrocardiogram [ECG] [EKG]; G47.33 Obstructive sleep apnea (adult) (pediatric); Z94.0 Kidney transplant status; Z92.25 Personal history of immunosuppression therapy; Z90.710 Acquired absence of both cervix and uterus; Z79.82 Long term (current) use of aspirin; Z79.899 Other long term (current) drug therapy

== ENCOUNTER → 2019-05-30 | Outpatient (CLI) | payer OTHER ==
[~2019-05-30] VITALS: Ht 157.5 cm; Wt 54.4 kg
--- NOTE | ~2019-05-30 | P ---
[facility] [place] [place] [address] PROCEDURE REPORT Name: ELMA ROSADO Room #: REG [facility] Talia#: [id number] Admission: 05/30/19 Attend Phys: Nicholas Harmon Discharge: Date of : 32 Report #: [id number] THIS REPORT FOR: cc: Nnamdi Valentine MD, David W. MD McElhinney, Christian C. MD ~ CC: Buzz Valentine DATE OF SERVICE: 05/30/2019 PROCEDURE PERFORMED: Upper endoscopy with esophageal dilation. HISTORY OF PRESENT ILLNESS: The patient is an 88-year-old female with a history of recurrent dysphagia. She underwent an upper endoscopy by myself on 11/13/2018. Biopsies at that time were negative for H. pylori as well as eosinophilic esophagitis. No obvious stricture of the esophagus was noted. She was dilated up to 51-Kittitian. She reports improvement in her dysphagia, but in the last 2 weeks began having recurrent dysphagia. Plan is for repeat upper endoscopy with dilation. DESCRIPTION OF PROCEDURE: The risks and benefits of the procedure were explained to the patient, those risks including but not limited to bleeding, perforation and the risk of sedation. She understood these risks and gave informed consent. Sedation was given using propofol per anesthesia. Next, using a standard Olympus upper endoscope, the scope was placed in the patient's mouth and advanced under direct vision through the esophagus, stomach and into the second portion of the duodenum. The larynx was normal in appearance. The esophagus again was normal. No strictures were seen. The GE junction was normal. Overall, the gastric mucosa was normal. The pylorus was normal and patent. The duodenal bulb, first and second portion were normal. The scope was then brought back up into the patient's stomach and a Savary guidewire was inserted through the scope, leaving the guidewire in place as the scope was then withdrawn. Next, I performed a Savary dilation with a 51-Kittitian without difficulty. The scope was reintroduced. No evidence of mucosal tear was noted. At this point, I increased to 54-Kittitian without difficulty. When the scope was reintroduced, there was a small mucosal tear in the proximal esophagus. No evidence of bleeding, otherwise negative. At this point, the scope was then withdrawn and the procedure terminated. The patient tolerated the procedure well. IMPRESSION: Normal upper endoscopy, status post dilation with 51 and 54-Kittitian Savary. [address] [address] PROCEDURE REPORT Name: ELMA ROSADO Room #: REG [facility] Melgar#: [id number] Admission: 05/30/19 Attend Phys: Nicholas Harmon Discharge: Date of : 32 Report #: [id number] RECOMMENDATIONS: 1. Observe the patient post-dilation. 2. Repeat on a p.r.n. basis. Thank you for allowing me to participate in her care. By: 1130 1751 Nicholas Alejandra MD /saul
== END | disposition home or self-care (01) ==
LOC: GI 05-23 10:29
DX: R13.19 Other dysphagia (principal); I10 Essential (primary) hypertension; I25.2 Old myocardial infarction; I25.10 Atherosclerotic heart disease of native coronary artery without angina pectoris; E03.9 Hypothyroidism, unspecified; F32.9 Major depressive disorder, single episode, unspecified; G47.30 Sleep apnea, unspecified; Z98.890 Other specified postprocedural states; Z79.899 Other long term (current) drug therapy; Z98.41 Cataract extraction status, right eye; Z90.711 Acquired absence of uterus with remaining cervical stump; Z90.49 Acquired absence of other specified parts of digestive tract; Z98.42 Cataract extraction status, left eye; Z85.828 Personal history of other malignant neoplasm of skin; Z94.0 Kidney transplant status; Z86.73 Personal history of transient ischemic attack (TIA), and cerebral infarction without residual deficits; Z91.041 Radiographic dye allergy status; Z88.0 Allergy status to penicillin; Z88.2 Allergy status to sulfonamides; Z88.6 Allergy status to analgesic agent; Z79.82 Long term (current) use of aspirin
CPT/HCPCS: 62110; 62900

== ENCOUNTER → 2019-12-13 | Outpatient (CLI) | payer OTHER ==
[~2019-12-13] MED LIST changes: +PRINIVIL20 M1 PO; +REMERON15 M2 PO
== END ==
LOC: SJCVC 15:05
PROVIDERS: ATTEND Internal Medicine
DX: R94.31 Abnormal electrocardiogram [ECG] [EKG] (principal); I25.119 Atherosclerotic heart disease of native coronary artery with unspecified angina pectoris; I10 Essential (primary) hypertension; E78.5 Hyperlipidemia, unspecified; G47.33 Obstructive sleep apnea (adult) (pediatric); Z94.0 Kidney transplant status; Z92.25 Personal history of immunosuppression therapy; Z79.899 Other long term (current) drug therapy

== ENCOUNTER → 2019-12-13 | Outpatient (CLI) | payer OTHER | LOC: LAB 08:00 | PROVIDERS: ATTEND Student in an Organized Health Care Education/Training Program | DX: Z01.812 Encounter for preprocedural laboratory examination (principal); Z20.828 Contact with and (suspected) exposure to other viral communicable diseases ==

== ENCOUNTER → 2019-12-31 | Outpatient (CLI) | payer OTHER ==
[~2019-12-31] MED LIST changes: +MULTI VITAMIN1 EACH PO; +VITAMIN D-40010 MCG PO
== END ==
LOC: LAB 12-28 07:48
PROVIDERS: ATTEND Student in an Organized Health Care Education/Training Program
DX: Z01.812 Encounter for preprocedural laboratory examination (principal); Z20.828 Contact with and (suspected) exposure to other viral communicable diseases

== ENCOUNTER → 2020-06-27 | Outpatient (CLI) | payer OTHER | LOC: SJCVC 13:27 | PROVIDERS: ATTEND Internal Medicine | DX: R94.31 Abnormal electrocardiogram [ECG] [EKG] (principal); I25.119 Atherosclerotic heart disease of native coronary artery with unspecified angina pectoris; I10 Essential (primary) hypertension; E78.5 Hyperlipidemia, unspecified; G47.33 Obstructive sleep apnea (adult) (pediatric); E03.9 Hypothyroidism, unspecified; Z79.82 Long term (current) use of aspirin; Z79.899 Other long term (current) drug therapy; Z88.0 Allergy status to penicillin; Z88.2 Allergy status to sulfonamides; Z94.0 Kidney transplant status; Z92.25 Personal history of immunosuppression therapy; Z82.49 Family history of ischemic heart disease and other diseases of the circulatory system ==

== ENCOUNTER 2020-09-19 15:27 | Inpatient (IN) | payer OTHER ==
[~2020-09-19] VITALS: Ht 162.6 cm; Wt 73.0 kg
[2020-09-19] MEDS ORDERED: LORAZEPAM 0.50.5 MG PO (15:34)
[2020-09-19 16:06] LABS: ABSOLUTE NEUTROPHILS 7.6 thou/uL (1.4-8.2); BASOPHILS 0.3 % (0.0-2.0); EOSINOPHILS 0.6 % (0.0-3.0); HEMATOCRIT 42.1 % (37.0-47.0); HEMOGLOBIN 14.3 gm/dL (12.0-15.0); LYMPHOCYTES 11.2 % (24.0-44.0); MCH 33.9 pg (26.0-34.0); MCHC 33.9 g/dL (28.0-37.0); MCV 99.9 fL (80.0-100.0); PLATELET COUNT 225 thou/uL (150-400); POLYS 83.9 % (36.0-66.0); RBC 4.22 mil/uL (4.20-5.00); RDW 13.1 % (10.5-14.5); WBC 9.1 thou/uL (4.0-11.0)
[2020-09-19 16:13] LABS: ANION GAP 7 mmol/L (7-16); BUN 13 mg/dL (7-18); CALCIUM 8.9 mg/dL (8.5-10.1); CHLORIDE 106 mmol/L (98-107); CO2 29 mmol/L (21-32); CREATININE 1.1 mg/dL (0.6-1.0); GLUCOSE 116 mg/dL (74-106); SODIUM 142 mmol/L (136-145)
[2020-09-19 16:18] LABS: APTT 23.1 Seconds (24.5-32.8); INR 0.95; PROTIME 10.4 Seconds (10.5-12.1)
[2020-09-19 16:23] LABS: ALBUMIN 3.1 g/dL (3.4-5.0); SGOT 18 U/L (15-37); SGPT 19 U/L (14-59); TOTAL BILIRUBIN 0.5 mg/dL (0.2-1.0); TROPONIN-I <0.06 ng/mL (<0.06)
[2020-09-19 17:32] VITALS: BP 126/70
[2020-09-19 18:05] VITALS: BP 153/75
[2020-09-19 18:47] VITALS: BP 166/88
[2020-09-19 19:17] LABS: URINE BILIRUBIN NEGATIVE (Negative); URINE BLOOD NEGATIVE (Negative); URINE CLARITY CLOUDY; URINE COLOR YELLOW; URINE GLUCOSE-RANDOM* NEGATIVE (Negative); URINE KETONES NEGATIVE (Negative); URINE PROTEIN (DIPSTICK) TRACE (Negative); URINE SPECIFIC GRAVITY 1.025 (1.005-1.035); URINE UROBILINOGEN 0.2 E.U./dl (0.2-1.0)
[2020-09-19 19:18] LABS: URINE LEUKOCYTES-REFLEX 2+ (Negative); URINE NITRITE-REFLEX POSITIVE (Negative)
[2020-09-19 19:47] LABS: CASTS None Seen /LPF (None Seen); CRYSTALS None Seen /LPF (None Seen); SQUAMOUS 4-10 Moderate /LPF (0-3); URINE WBC-REFLEX >25 Many /HPF (0-5)
[2020-09-19 19:48] LABS: BACTERIA-REFLEX >30 Many /HPF (None Seen); URINE RBC None Seen /HPF (NONE SEEN)
[2020-09-20] VITALS (9 sets, daily range): BP systolic 139–199; BP diastolic 61–114
--- NOTE | 2020-09-20 01:31 | NUR ---
PT ALERT AND ORIENTED TO PERSON , TIME, SITUATION. REORIENTED TO CORRECT HOPSITAL , DATE AND YEAR. NIH 1. NIH IMPROVED FROM EARLIER. 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 CANNOT SEE LOWER RIGHT FIELD. BP ELEVATED. CALLED RESULTS OF MRI AND BP TO NEUROLOGIST . NOTIFIED OIL REFINERY OPERATOR OF BP ALSO. IVF RATE DECREASED TO 60. WILL CALL GREATER THAN 200 ORDERED. INSTRUCTED PT ON FALL PRECAUTIONS. PT CHANGED TO DNR PER OIL REFINERY OPERATOR PER PT AND DAUGHTER REQUEST. PT NPO FOR NOW DUE TO COUGHING NOTED AFTER SWALLOWING WATER. OIL REFINERY OPERATOR AND NEUROLOGIST NOTED. PT NPO FOR NOW. ST TO EVALUATE SWALLOWING. BED DOWN CALL LIGHT IN REACH. BED ALARM IS ON.
--- NOTE | 2020-09-20 05:18 | NUR ---
NOTIFIED SUPERVISOR SHAVING AND SPLITTING BP ELEVATED THIS AM. HYDRALAZINE 5MG IV GIVEN ORDERED. TYLENOL UT GIVEN FOR C/O STRATTON 11/25. WILL RECHECK . NIH UNCHANGED.
[2020-09-20 05:49] LABS: HEMATOCRIT 42.7 % (37.0-47.0); HEMOGLOBIN 14.5 gm/dL (12.0-15.0); MCH 33.9 pg (26.0-34.0); MCV 99.8 fL (80.0-100.0); RBC 4.28 mil/uL (4.20-5.00); RDW 13.3 % (10.5-14.5); WBC 9.8 thou/uL (4.0-11.0)
[2020-09-20 05:53] LABS: CALCIUM 8.6 mg/dL (8.5-10.1); CREATININE 0.7 mg/dL (0.6-1.0); POTASSIUM 3.2 mmol/L (3.5-5.1)
--- NOTE | 2020-09-20 07:28 | NUR ---
BP 165/[address] REBECA ULRICH CAME TO SEE PT THIS AM. HE WAS NOTIFIED OF NIH AND BP . ST TO SEE PT TODAY.
--- NOTE | 2020-09-20 07:48 | NUR ---
THIS RN PAGED RE: PT BP 199/114
--- NOTE | 2020-09-20 12:11 | NUR ---
ASSUMED PT CARE AT SHIFT CHANGE, PT WAS VISIBLY UPSET AT START OF CARE, THIS RN ABLE TO USE THERAPEUTIC COMMUNICATION TO CALM PT DOWN. PT FAMILY VISITING THIS MORNING, FALL PRECAUTIONS IN PLACE. THIS RN INFORMED FAMILY THEY CAN HELP WITH CARES, BUT TO PLEASE NOTIFY NURSING STAFF TO PREVENT FALLS/ASPIRATION RISK. FAMILY VERBALLY AGREED, BUT HAS DIFFICULTY IN PRACTICE. THIS RN PROVIDED EDUCATION MULTIPLE TIMES. PT HAS BEEN PUT ON MECH CHOPPED DIET, THIN LIQUIDS, NO STRAWS.
--- NOTE | 2020-09-20 12:30 | EKG ---
[place] [address] [facility] [place] [address] ELECTROCARDIOGRAM REPORT Name: ELMA ROSADO Room #: 351-P ADM IN M.R.#: [id number] Admission: 09/19/20 Attend Phys: Pierce Wei MD Discharge: Date of : 32 Report #: [id number] [facility] ED Test Date: 2020-09-19 Test Time: 16:04:26 Pat Name: ELMA ROSADO Department: Room: [facility] Gender: F Microelectronics Assembler: JCHAIFILIPPO : 1930 Requested By: Bigg Garcia Order Number: [id number] MD: Alf Ellison Measurements Intervals [place] Rate: 75 P: 28 MA: 175 QRS: -37 QRSD: 105 T: 85 QT: 432 QTc: 483 Interpretive Statements Sinus rhythm Left axis deviation Probable anteroseptal infarct, old Minimal ST depression, lateral leads Compared to ECG 12/30/2016 19:19:34 QT interval has shortened Electronically Signed On 09-20-2020 12:30:17 CDT by Alf Ellison [email or web address] <ELECTRONICALLY SIGNED> By: Alf Ellison MD, [facility] 09/20/20 1230 1604 1604 Alf Ellison MD, [facility] /EPI
--- NOTE | 2020-09-20 12:37 | EKG ---
[place] [address] [facility] [place] [address] ELECTROCARDIOGRAM REPORT Name: ELMA ROSADO Room #: 351-P ADM IN M.R.#: [id number] Admission: 09/19/20 Attend Phys: Pierce Wei MD Discharge: Date of : 32 Report #: [id number] [facility] Test Date: 2020-09-20 Test Time: 09:19:39 Pat Name: ELMA ROSADO Department: Room: 351 P Gender: F Brancher: JEFF : 1930 Requested By: Lotus Chapa Order Number: [id number] MD: Alf Ellison Measurements Intervals [place] Rate: 86 P: 37 [place]: 162 QRS: -30 QRSD: 105 T: 123 QT: 373 QTc: 446 Interpretive Statements Sinus rhythm Atrial premature complex Nonspecific ST and T wave abnormality Anterior infarct, old Compared to ECG 09/19/2020 16:04:26 Atrial premature complex(es) now present Electronically Signed On 09-20-2020 12:37:11 CDT by Alf Ellison [email or web address] <ELECTRONICALLY SIGNED> By: Alf Ellison MD, [facility] 09/20/20 1237 8 Alf Ellison MD, [facility] /EPI
--- NOTE | 2020-09-20 17:43 | NUR ---
PT HAS HAD MULTIPLE SMALL EPISODES OF PANIC ATTACK. PT HAS BEEN ABLE TO BE SLIGHTLY CALMED WITH THERAPEUTIC COMMUNICATION. PT ANXIETY APPEARS TO INCREASE WHEN FAMILY IS IN ROOM OR ON PHONE. PRN ATIVAN WAS PROVIDED TO PT. PT STATES SHE IS READY TO GO HOME. THIS RN RE-EDUCATED FAMILY ON SWALLOWING PRECAUTIONS AND ASKED PT FAMILY TO NOT GIVE HARD CANDY TO PT PT MAY BITE/BREAK APART AND NOT BE ABLE TO SWALLOW PROPERLY. FAMILY IN ROOM VERBALIZED UNDERSTANDING.
--- NOTE | 2020-09-21 01:27 | NUR ---
ASSESSMENT: PT IS A HIGHLY ANXIOUS INDIVIDUAL. DAUGHTER AT THE BEDSIDE AT THE BEGINNING OF THE SHIFT. PT UP WITH MINIMAL ASSISTANCE WITH PIVOT TO BSC. GAIT UNSTEADY AND VERY WEAK. BP ELEVATED, SBP > 160. PRN HYDRALAZINE GIVEN WITH GOOD RESULTS. HR WAS SUSTAINING A RATE OF 118-120. Yanet MENDOZA WAS NOTIFIED. NO ORDERS GIVEN. HR SLOWLY DECREASED TO LOW 100'S. CURRENTLY HR IS 108. PT SLEEPING. C/O HEAD/LEG PAIN. PRN HYDROCODONE GIVEN WITH GOOD RESULTS. RIGHT UPPER ARM IV PATENT WITH GOOD BLOOD RETURN. IVF INFUSING WITHOUT DIFFICULTY. TOLERATING PO INTAKE. SR-ST PER MONITOR. SLOW PROGRESS TOWARDS DC GOALS. WILL CONTINUE TO MONITOR.
[2020-09-21 04:18] VITALS: BP 121/75
[2020-09-21 05:05] LABS: ABSOLUTE NEUTROPHILS 6.7 thou/uL (1.4-8.2); BASOPHILS 0.2 % (0.0-2.0); EOSINOPHILS 0.9 % (0.0-3.0); HEMOGLOBIN 15.4 gm/dL (12.0-15.0); LYMPHOCYTES 19.6 % (24.0-44.0); MCH 33.7 pg (26.0-34.0); MCHC 33.4 g/dL (28.0-37.0); MCV 100.8 fL (80.0-100.0); MONOCYTES 10.5 % (1.0-8.0); PLATELET COUNT 248 thou/uL (150-400); POLYS 68.8 % (36.0-66.0); RBC 4.57 mil/uL (4.20-5.00); RDW 13.3 % (10.5-14.5); WBC 9.7 thou/uL (4.0-11.0)
[2020-09-21 05:39] LABS: MAGNESIUM 1.8 mg/dL (1.8-2.4); PHOSPHORUS 3.5 mg/dL (2.5-4.9)
[2020-09-21 06:45] LABS: FOLIC ACID 53.9 ng/mL (8.6-58.9)
[2020-09-21 07:56] VITALS: BP 152/66
--- NOTE | 2020-09-21 08:58 | NUR ---
ASSUMED PT CARE AT SHIFT CHANGE. PT MORE RELAXED, LESS ANXIOUS. PT HAS INCREASED R SIDED WEAKNESS THIS MORNING. PAGED DR DIXON, ADVISED TO CHANGE LIQUIDS TO NECTAR THICK DUE TO TROUBLE SWALLOWING PILLS. PILLS ADVISED TO CRUSH IN APPLESAUCE.
--- NOTE | 2020-09-21 11:01 | NUR ---
PT DOWN TO CT WITH CO SUPERVISOR GROUNDS AND LANDSCAPE. IV TEAM SUCCESSFULLY PLACED MIDLINE IN DINESH. FAMILY VISITING/WAITING IN LOBBY.
--- NOTE | 2020-09-21 11:08 | NUR ---
PT FAMILY STARTED YELLING AND SCREAMING IN HALLWAY. PT DOWN IN CT. THIS RN APPROACHED FAMILY MEMBERS AND STATED THE YELLING IS NOT APPROPRIATE IN THE HOSPITAL SETTING. THE MALE WENT DOWN ON THE ELEVATOR, SECURITY CALLED FOR REINFORCEMENT. ONE OF THE DAUGHTERS STARTED YELLING AFTER THE MALE, THIS RN REQUESTED THAT SHE STAY AWAY FROM MALE VISITOR TO HELP SITUATION SETTLE DOWN. TRADE ANALYST KELLI CONVERSED WITH THE TWO REMAINING DAUGHTERS ON FLOOR LOBBY.
--- NOTE | 2020-09-21 11:16 | NUR ---
UNABLE TO RUN FLUIDS AT COMPLETION EARLIER TO DUE PERIPHERAL LINE INFILTRATION. PT R UPPER ARM RED, EDEMATOUS. ANTIBIOTIC AND MAINTENANCE FLUIDS NOT INFUSED.
--- NOTE | 2020-09-21 11:36 | NUR ---
A #4F POWER INJECTABLE MIDLINE WAS PLACED PER HOSPITAL POLICY. THE LINE WAS 15CM AND ADVANCED WITHOUT DIFFICULTY. LINE WAS SECURED AND RELEASED FOR USE. THE FAMILY WAS VERY EMOTIONAL AND ALLOWED TO BE AT BEDSIDE WITH PLACEMENT.
[2020-09-21 13:02] VITALS: BP 114/61
[2020-09-21 15:57] VITALS: BP 112/65
[2020-09-21 19:19] VITALS: BP 110/67
[2020-09-22] VITALS (7 sets, daily range): BP systolic 143–158; BP diastolic 61–85
--- NOTE | 2020-09-22 03:35 | NUR ---
ASSUMED CARE OF PT AT 0. PT SLEEPING, NOT DIFFICULT TO AROUSE. VSS, AFEBRILE. REMAIN NPO R/T DYSPHAGIA. FAMILY NOT AT BEDSIDE UPON THIS RN'S ARRIVAL. NO LOOSE STOOLS THIS SHIFT. LEFT UA MIDLINE PATENT, IVF'S INFUSING WITHOUT DIFFICULTY. GARCIA PATENT WITH DK YELLOW UO. POOR PROGRESS TOWARDS DC GOALS. WILL CONTINUE TO MONITOR. CONSULT FOR DR. CARPIO PENDING.
--- NOTE | 2020-09-22 10:28 | NUR ---
Pt with hx multiple cva's, admitted with recurrent CVA. Chart reviewed, symptoms worsening, family has requested palliative care and Dr Kay has been consulted. ST recommending puree with honey liquids and oral supplements. Defer further nutrition eval with appropriate nutrition interventions in place
[2020-09-22 10:39] LABS: CHOLESTEROL 171 mg/dL (<200); HDL CHOLESTEROL 57 mg/dL (>40); LDL CHOLESTEROL 90 mg/dL (<100); TRIGLYCERIDE 120 mg/dL (<150); VLDL 24 mg/dL (<40)
--- NOTE | 2020-09-22 13:57 | NUR ---
ASSESSMENT: CM REVIEWED CHART AND MET WITH PATIENT AND HER DAUGHTER LONNIE AT THE BEDSIDE. PT WAS ADMITTED WITH SLURRED SPEECH AND RULE OUT TIA/CVA. PT IS BEING FOLLOWED BY NEUROLOGY. PT LIVES IN A SENIOR INDEPENDENT APARTMENT WITH HER DAUGHTER LONNIE. PT HAS NO STEPS TO ENTER OR ONCE INSIDE. PT HAS A WALKER SHE USES FOR AMBULATION AND ALSO HAS A WHEELCHAIR. PT HAS A GRAB BAR IN THE SHOWER AND SHOWER CHAIR. PT NEEDS ASSISTANCE FROM DAUGHTER AT TIMES. PT PASSED HER SWALLOW STUDY. DAUGHTER LONNIE REPORTS THAT PATIENT HAS BEEN IN SERVICES WITH [facility] TWICE IN THE PAST LAST BEING IN 2019. SHE REPORTS PATIENT HAS ALSO BEEN TO A SNF YEARS AGO BUT CANNOT RECALL THE FACILITY. 5N CONSULT HAS BEEN PLACED BUT UNSURE PATIENT WILL HAVE THE TOLERANCE. THERE IS ALSO A CONSULT PLACED FOR PALLIATIVE CARE/HOSPICE PHYSICIAN. CM DISCUSSED PALLIATIVE CARE CONSULT WELL 5N CONSULT FOR ACUTE REHAB AND DISCUSSED SNF AND LEFT SNF LIST AT THE BEDSIDE. DAUGHTER REPORTS THEY ARE AWAITING TO SPEAK WITH DR. CARPIO BEFORE SELECTING AN OPTION BUT WANTED TO KNOW ALL OPTIONS BEFORE MAKING A DECISION. CM WILL CONTINUE TO FOLLOW TO ASSIST NEEDED.
--- NOTE | 2020-09-22 14:14 | 2DMMODE ---
[facility] [place] [address] 2 D/M-MODE ECHOCARDIOGRAM Name: ELMA ROSADO Room #: 351-P ADM IN M.R.#: [id number] Admission: 09/19/20 Attend Phys: Pierce Wei MD Discharge: Date of : 34 Report #: [id number] THIS REPORT FOR: cc: ARSALAN RUSSELL Physician not on staff Santos Hackett MD ~ APPROVED REPORT Study performed: 09/22/2020 13:15:13 EXAM: Comprehensive 2D, Doppler, and color-flow Echocardiogram Patient Location: Bedside Room #: 351 Status: routine BSA: 1.78 HR: 98 bpm BP: 143/78 mmHg Rhythm: NSR Other Information Study Quality: Adequate Indications CVA. Hx: MT, stents, HTN. Echo Enhancing Agent Indication: Rule out Shunt Agent(s) / Amount(s) Used: Agitated Saline 7 cc 2D Dimensions IVSd: 13.64 (7-11mm) LVOT Diam: 20.72 (18-24mm) LVDd: 40.94 mm PWd: 10.55 (7-11mm) LVDs: 29.29 (25-40mm) Left Atrium: 30.14 (27-40mm) Aortic Root: 31.92 mm Volumes Left Atrial Volume (Systole) Single Plane 4CH: 45.73 mL Single Plane 2CH: 26.25 mL LA ESV Index: 22.00 mL/m2 Aortic Valve [facility] [address] [place] [address] 2 D/M-MODE ECHOCARDIOGRAM Name: ELMA ROSADO Room #: 351-P ADM IN M.R.#: [id number] Admission: 09/19/20 Attend Phys: Pierce Wei MD Discharge: Date of : 34 Report #: [id number] AoV Peak Ananda.: 1.72 m/s AO Peak Gr.: 11.77 mmHg LVOT Max P.32 mmHg LVOT Max V: 1.15 m/s SAVANNAH Vmax: 2.27 cm2 Mitral Valve E/A Ratio: 0.6 MV Decel. Time: 145.21 ms MV E Max Ananda.: 0.77 m/s MV A Ananda.: 1.37 m/s MV PHT: 42.11 ms IVRT: 57.67 ms Pulmonary Valve PV Peak Ananda.: 1.09 m/s PV Peak Gr.: 4.79 mmHg Pulmonary Vein P Vein S: 0.51 m/s P Vein D: 0.23 m/s P Vein S/D Ratio: 2.22 Tricuspid Valve RAP Estimate: 5.00 mmHg Left Ventricle The left ventricle is normal size. There is normal LV segmental wall motion. Mild basal septal hypertrophy is present. Left ventricular systolic function is hyperdynamic. LVEF is 65-70%. Mild diastolic dysfunction is present (impaired relaxation pattern). Right Ventricle The right ventricle is normal size. The right ventricular systolic function is normal. Atria The left atrium size is normal. No shunting noted with contrast bubble injection. The right atrium size is normal. Aortic Valve The Aortic valve is moderately sclerotic. Trace aortic regurgitation. There is no aortic valvular stenosis. Mitral Valve The mitral valve is normal in structure. There is no mitral valve regurgitation noted. No evidence of mitral valve stenosis. [facility] [address] [place] [address] 2 D/M-MODE ECHOCARDIOGRAM Name: ELMA ROSADO Room #: 351-P ADM IN M.R.#: [id number] Admission: 09/19/20 Attend Phys: Pierce Wei MD Discharge: Date of : 34 Report #: [id number] Tricuspid Valve The tricuspid valve is normal in structure. There is no tricuspid valve regurgitation noted. Unable to assess PA pressure. Pulmonic Valve The pulmonary valve is normal in structure. Trace pulmonic regurgitation. Great Vessels The aortic root is normal in size. Ascending aorta is not well visualized. IVC is normal in size and collapses >50% with inspiration. Pericardium There is no pericardial effusion. <Conclusion> The left ventricle is normal size. Left ventricular systolic function is hyperdynamic. Mild diastolic dysfunction is present (impaired relaxation pattern). The right ventricle is normal size. The left atrium size is normal. No shunting noted with contrast bubble injection. The Aortic valve is moderately sclerotic. There is no mitral valve regurgitation noted. <ELECTRONICALLY SIGNED> By: Santos Hackett MD 09/22/20 1414 [id number] Santos Hackett MD /INF
--- NOTE | 2020-09-22 16:55 | NUR ---
ON-GOING ASSESSMENT: CM SPOKE WITH PATIENTS LIDYA FLEMING AT 1655 STATING THAT THEY STILL WANT PATIENT TO GO HOME THIS EVENING VIA AMBULANCE BUT WANT [facility] TO NOT COME TO THEIR HOME UNTIL TOMORROW. CM NOTIFIED ATTENDING. PLANS ARE FOR PATIENT TO STILL DISCHARGE HOME TODAY VIA AMBULANCE AND WILL BE EVALUATED AND ADMITTED BY [facility] TOMORROW. CM ALREADY FAXED DISCHARGE PAPERWORK TO [facility] AND CONFIRMED THEY RECEIVED IT. CM NOTIFIED BEDSIDE RN. CM ARRANGED TRANSPORT VIA [facility] [phone] WHO STATED THEY HAVE ALOT OF CALLS AHEAD OF HER BUT GUESSTIMATING A 1900 PICKUP TIME. CM NOTIFIED BEDSIDE RN WELL DAUGHTER LONNIE THAT THIS TIME COULD CHANGE. OUTSIDE DNR FORM ON CHART WELL [facility] FORM. DAUGHTER REPORTS THEY HAVE ALL NEEDED MEDICATION AT HOME UNTIL HOSPICE COMES TOMORROW. CM ENCOURGED HER THAT [facility] COULD MEET THE FAMILY TONIGHT AND BE ADDITIONAL SUPPORT BUT SHE DECLINED THIS. CM NOTIFIED JAQUAN AT [facility] OF THE SITUATION. DAUGHTER REPORTS HAVING A WHEELCHAIR AND WALKER AT HOME AND HAS ENOUGH EQIPMENT TO GET THEM BY UNTIL TOMORROW.
--- NOTE | 2020-09-22 19:12 | NUR ---
PLAN TO DISCHARGE HOME WITH DAUGHTER CYN AND HOSPICE...MIDLINE REMOVED...GARCIA LEFT IN PLACE...
--- NOTE | 2020-09-22 21:38 | NUR ---
PT DISCHARGED TO HOME FOR HOSPICE VIA [facility]. ALL BELONGINGS SENT WITH PT.
--- NOTE | 2020-09-23 15:50 | NUR ---
RENETTA received call from [employer] community association manager regarding pt's discharge. Call received on 09/22 around 1830. SW returned call and spoke with pt's children via speakerphone regarding discharge plan. Pt's dtr, Silvia, asked about the frametime when pt can be admitted from home to a SNF after discharge. RENETTA explained that traditional Medicare allows SNF admissions from home 30 days post discharge from the hospital. RENETTA encouraged pt's family to call pt's insurance to verify. Pt's family asked to confirm that hospice will admit pt on service on 09/23/2020, as they do not want hospice coming out that evening. RENETTA explained that ambulance transportation has been scheduled and that hospice will do the admission on 09/23. Pt's family deny any additional questions and agreeable with plan for discharge on 09/22. RENETTA updated 3W and attending physician. Case closed.
--- NOTE | 2020-09-25 14:16 | HC ---
[facility] [place] [address] CONSULTATION Name: ELMA ROSADO Room #: 351-P [facility] IN M.R.#: [id number] Admission: 09/19/20 Attend Phys: Pierce Wei MD Discharge: 09/22/20 Date of : 34 Report #: [id number] THIS REPORT FOR: cc: ARSALAN RUSSELL Physician not on staff Haroldo Alba MD ~ DOC #: [id number] Haroldo Alba MD DATE OF SERVICE: 09/19/2020 HISTORY OF PRESENT ILLNESS: This is an 89-year-old female patient who was evaluated by me in the ER. I talked to emergency room physician when I was in [place] and discussed symptoms with him. Then, I started from the [place] and came and saw the patient. The patient has presented with speech difficulty and right-sided weakness. They have improved, but she has not come back to her baseline. She had a stroke in the past a long time ago, she lost the vision on the right side. She lost speech, but it came back. She may have had some baseline speech deficit, but then she became worse. In the emergency room, she started improving. She is already on Plavix. She did not have much a reactive hypertension. REVIEW OF SYSTEMS: Positive for CVA a long time ago. They do not know what the cause, they were told it was hypertension. She does have some history of depression. She used to be on dialysis, but then she got a kidney transplant. She is allergic to DYE. She is on immune suppression medication. She has a history of hypothyroidism, depression, hip fracture, basal cell carcinoma, partial hysterectomy, cataract surgery. That was a relevant 14-point review of systems. PAST MEDICAL HISTORY: Positive for stroke. FAMILY HISTORY: Negative for early age strokes. SOCIAL HISTORY: She presented with a very supportive daughter. PHYSICAL EXAMINATION: Indicate she does have speech difficulty. It takes her some time to think about the chowdhury, but many times she is able to express herself. She was able to tell me what month it is. Otherwise, memory is not very good. Cranial nerve examination II-XII was attempted. She has hemianopsia, but I do not see any prominent facial palsy. To me, she can lift the right upper extremity against gravity as well as some resistance. Right lower extremity, she lifts against gravity and appeared to be more weak there than the right upper extremity. Blood pressure did come up after she was given some fluid. She did have a CT scan of the head which did not show any acute changes. 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 [address] [address] CONSULTATION Name: ELMA ROSADO Room #: 351-P [facility] IN M.R.#: [id number] Admission: 09/19/20 Attend Phys: Pierce Wei MD Discharge: 09/22/20 Date of : 34 Report #: [id number] IMPRESSION: This patient and the daughter has declined TPA. I came and talked to them and the pretty adamant that they will not go for TPA. There is no strict contraindication for TPA, but they do not want to proceed with that. We have discussed all of it in great detail and that is what their decision is. I ordered an MRI and MRA in this patient and I talked to Dr. Wei and asked him to give her some fluid to increase of blood pressure. She will need PT, OT. MRI is still not done, so I called the radiology again and they finally said it will be done and we will look at it once this was done to see if there is any further thing we can do on her. More than 50 minutes of time was spent taking care of this patient and majority was spent counseling and coordinating Thank you very much for this referral. Haroldo Alba MD PK/ROSARIO <ELECTRONICALLY SIGNED> By: Haroldo Alba MD 09/25/20 1416 [id number] Haroldo Alba MD /nt
== END 2020-09-22 21:35 | disposition hospice, home (50) | DRG 64 ==
LOC: ER 15:27 → 3W 17:30 → EROBS 17:30 → 3W 18:38
PROVIDERS: Emergency Medicine; Internal Medicine; ADMIT Hospitalist; ATTEND Hospitalist
DX: I63.81 Other cerebral infarction due to occlusion or stenosis of small artery (principal); N17.0 Acute kidney failure with tubular necrosis; N39.0 Urinary tract infection, site not specified; Z94.0 Kidney transplant status; G81.91 Hemiplegia, unspecified affecting right dominant side; I95.9 Hypotension, unspecified; R13.10 Dysphagia, unspecified; I16.0 Hypertensive urgency; E87.6 Hypokalemia; I10 Essential (primary) hypertension; I25.10 Atherosclerotic heart disease of native coronary artery without angina pectoris; E03.9 Hypothyroidism, unspecified; F32.9 Major depressive disorder, single episode, unspecified; H53.47 Heteronymous bilateral field defects; R47.01 Aphasia; G89.29 Other chronic pain; M54.9 Dorsalgia, unspecified; E78.5 Hyperlipidemia, unspecified; F41.9 Anxiety disorder, unspecified; Z51.5 Encounter for palliative care; Z66 Do not resuscitate; Z85.828 Personal history of other malignant neoplasm of skin; Z90.711 Acquired absence of uterus with remaining cervical stump; I25.2 Old myocardial infarction; Z98.42 Cataract extraction status, left eye; Z98.41 Cataract extraction status, right eye; Z86.718 Personal history of other venous thrombosis and embolism; Z90.49 Acquired absence of other specified parts of digestive tract; Z79.82 Long term (current) use of aspirin; Z79.899 Other long term (current) drug therapy; Z88.2 Allergy status to sulfonamides; Z88.1 Allergy status to other antibiotic agents; Z91.041 Radiographic dye allergy status; Z88.5 Allergy status to narcotic agent; Z88.0 Allergy status to penicillin; Z91.013 Allergy to seafood
CPT/HCPCS: 10879; 27000